=== PATIENT | female | born 1985 | race Caucasian/White ===

== ENCOUNTER 2017-08-05 05:56 | Emergency (ER) | payer SELFPAY ==
[2017-08-05 06:32] LABS: URINE MICROSCOPIC INDICATED? YES; URINE SOURCE RANDOM
--- NOTE | 2017-08-05 06:37 | ED Physician Chart ---
ED Chief Complaint/HPI - Patient Information Date Seen:: 08/05/17 Time Seen:: 06:30 Chief Complaint:: Abdominal pain History of Present Illness:: 31 yo female had abdominal pain for 4 days. The pain is epigastric and RUQ with N/V. She also noticed blood on surface of stool during past 2 months. She had diarrhea and loose stool. She had malnutrition and receive TPN through a [facility] on her right chest. She last received TPN 4 months ago. Currently, she used vegan diet. She also received Pepcide and Zofran through [facility] via home health. Allergies:: Allergies Allergy/AdvReac Type Severity Reaction Status Date / Time acetaminophen [From Tylenol] Allergy Verified 08/05/17 06:16 aspirin Allergy Verified 08/05/17 06:16 codeine Allergy Verified 08/05/17 06:16 metoclopramide [From Reglan] Allergy Verified 08/05/17 06:16 Penicillins [PCN] Allergy Verified 08/05/17 06:16 prochlorperazine Allergy Verified 08/05/17 06:16 [From Compazine] Sulfa (Sulfonamide Allergy Verified 08/05/17 06:16 Antibiotics) Vitals:: Vital Signs - 8 hr 08/05/17 06:00 Temp 97.9 F HR 109 RR 18 BP 120/77 O2 Sat % 97 ED Past Medical History - Past Medical History Past Medical History: PUD/GERD, Other (pancreatitis) Social History: Non Smoker, No Alcohol, No Drug Use Surgical History: Cholecystectomy, other (ureter surgery) Family Medical History - Family Member Mother Ethnicity: Non- ED Labs/Radiology/EKG Results - Lab Results Results: Laboratory Tests 08/05/17 06:25 POC Ur Test Negative ED Septic Shock - <6hrs of presentation: Vital Signs: Vital Signs - 8 hr 08/05/17 06:00 Temp 97.9 F HR 109 RR 18 BP 120/77 O2 Sat % 97
[2017-08-05 06:42] LABS: % BASOPHILS 0.5 % (0.0-2.0); % LYMPHOCYTES 51.8 % (20.0-50.0); % MONOCYTES 7.3 % (2.0-10.0); % NEUTROPHILS 36.4 % (40.0-80.0); EOSINOPHILE ABSOLUTE 0.2 Th/cmm (0.1-0.4); HEMATOCRIT 27.1 % (41.0-60); HEMOGLOBIN 8.9 gm/dL (12-16); LYMPHOCYTE ABSOLUTE 2.3 Th/cmm (1.5-3.0); MEAN CELL VOLUME 87.9 fl (81-100); MEAN CORPUSCULAR HEMOGLOBIN 28.9 pg (27.0-31.0); MEAN CORPUSCULAR HGB CONC 32.9 pg (28.0-36.0); MEAN PLATELET VOLUME 6.3 fl; MONOCYTE ABSOLUTE 0.3 Th/cmm (0.3-1.0); NEUTROPHILE ABSOLUTE 1.6 Th/cmm (1.8-8.0); PLATELET COUNT 289 Th/cmm (150-400); RED BLOOD COUNT 3.08 Mil/cmm (3.80-5.10); RED CELL DISTRIBUTION WIDTH 14.1 % (11.5-20.0); WHITE BLOOD COUNT 4.4 Th/cmm (4.8-10.8)
[2017-08-05 07:09] LABS: ALB/GLOB RATIO 1.8 (1.0-1.8); ALKALINE PHOSPHATASE 57 U/L (34-104); BILIRUBIN,TOTAL 0.2 mg/dL (0.3-1.0); BUN - UREA NITROGEN 10 mg/dL (7-25); CALCIUM SERUM 8.9 mg/dL (8.6-10.3); CARBON DIOXIDE 25.5 mEq/L (21.0-31.0); CHLORIDE 105 mEq/L (98-107); CREATININE - SERUM 0.7 mg/dL (0.6-1.2); GFR AFRICAN-AMERICAN > 60.0 ml/min (>90); GFR NON AFRICAN-AMERICAN > 60.0 ml/min; GLUCOSE 128 mg/dL (70-105); LIPASE 74 U/L (11-82); POTASSIUM SERUM 3.5 mEq/L (3.5-5.1); SGOT 17 U/L (13-39); SGPT/ALT 12 U/L (7-52); SODIUM SERUM 135 mEq/L (136-145); TOTAL PROTEIN,SERUM 6.2 gm/dL (6.0-8.3)
[2017-08-05 07:20] LABS: URINE BILIRUBIN NEGATIVE (NEGATIVE); URINE BLOOD NEGATIVE (NEGATIVE); URINE GLUCOSE (UA) NEGATIVE (NEGATIVE); URINE KETONE NEGATIVE (NEGATIVE); URINE LEUKOCYTE ESTERASE NEGATIVE (NEGATIVE); URINE NITRATE NEGATIVE (NEGATIVE); URINE PROTEIN NEGATIVE (NEGATIVE); URINE UROBILINOGEN 0.2 E.U./dL (0.2 - 1.0)
[2017-08-05 07:29] LABS: URINE BACTERIA NONE SEEN /hpf (NONE SEEN); URINE CLARITY CLEAR (CLEAR); URINE COLOR YELLOW; URINE EPITHELIAL CELLS MODERATE /lpf (FEW); URINE RBC 0-2 /hpf (0-5); URINE WBC 0-2 /hpf (0-5)
== END 2017-08-05 06:30 | disposition left against medical advice (07) ==
LOC: ER 05:56
DX: R10.9 Unspecified abdominal pain (principal); K21.9 Gastro-esophageal reflux disease without esophagitis; Z87.11 Personal history of peptic ulcer disease
CPT/HCPCS: 36415-UA; 80053-TC; 81001-TC; 81025-TC; 83690-TC; 85025-TC; 93005

== ENCOUNTER 2017-10-01 16:00 | Inpatient (IN) | payer MEDICARE, MEDICAID ==
--- NOTE | 2017-10-01 16:45 | ED Physician Chart ---
ED Chief Complaint/HPI - Patient Information Date Seen:: 10/01/17 Time Seen:: 16:25 Chief Complaint:: right low back pain History of Present Illness:: Patient had onset 2 days ago of right low back pain which recurred this morning. Her temperature was 100 orally this morning. She also had onset of dysuria and right-sided headache this morning. Headache now has also gone to the left side of her head. This is her worst headache ever. Patient vomited twice this am. Allergies:: Allergies Allergy/AdvReac Type Severity Reaction Status Date / Time acetaminophen [From Tylenol] Allergy Verified 08/05/17 06:16 aspirin Allergy Verified 08/05/17 06:16 codeine Allergy Verified 08/05/17 06:16 metoclopramide [From Reglan] Allergy Verified 08/05/17 06:16 Penicillins [PCN] Allergy Verified 08/05/17 06:16 prochlorperazine Allergy Verified 08/05/17 06:16 [From Compazine] Sulfa (Sulfonamide Allergy Verified 08/05/17 06:16 Antibiotics) Vitals:: Vital Signs - 8 hr 10/01/17 16:05 Temp 98.1 F HR 126 RR 16 BP 93/59 O2 Sat % 99 Historian:: Patient Review:: Nurse's Note Reviewed ED Review of Systems - Review of Systems General/Constitutional: Fever Skin: No skin lesions Head: Headache Eyes: Acuity change ENT: No earache Neck: No neck pain Cardio Vascular: No chest pain Pulmonary: No SOB GI: No nausea, No vomiting, No diarrhea G/U: Dysuria Musculoskeletal: Back pain Endocrine: No polyuria, No polydipsia Psychiatric: No prior psych history ED Past Medical History - Past Medical History Past Medical History: Other (tachycardia; pancreatitis; 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 Family Medical History - Family Member Mother Ethnicity: Non- ED Physical Exam - Physical Examination General/Constitutional: Awake, Well-developed, well-nourished, Alert, No distress, GCS 15, Non-toxic appearing, Ambulatory Head: Atraumatic Eyes: Lids, conjuctiva normal, PERRL, EOMI Skin: Nl inspection, No rash, No skin lesions, No ecchymosis, Well hydrated, No lymphadenopathy ENMT: External ears, nose nl, Nasal exam nl, Lips, teeth, gums nl Neck: Nontender, No JVD, No nuchal rigidity, No bruit, No mass, No stridor Other Neck comments:: Review 5 forward flexion neck Respiratory: Nl effort/Exclusion, Clear to Auscultation, No Wheeze/Rhonchi/Rales Cardio Vascular: RRR, No murmur, gallop, rubs, NL S1 S2 GI: No organomegaly, No hernia, Normal BS's, Nondistended, No mass/bruits Other GI comments:: Diffuse tenderness more on the right side : No CVA tenderness Extremities: No tenderness or effusion, Full ROM, normal strength in all extremities, No edema, Normal digits & nails Neuro/Psych: Alert/oriented, DTR's symmetric, Normal sensory exam, Normal motor strength, Judgement/insight normal, Mood normal, Normal gait, No focal deficits Misc: Normal back, No paraspinal tenderness ED Septic Shock - . Is Septic Shock (SBP<90, OR Lactate>4 mmol\L) present?: No - <6hrs of presentation: Vital Signs: Vital Signs - 8 hr 10/01/17 16:05 Temp 98.1 F HR 126 RR 16 BP 93/59 O2 Sat % 99 ED Reassessment (Disposition) - Reassessment Reassessment Condition:: Unchanged - Diagnosis Diagnosis:: Hypokalemia; hypomagnesemia; hypotension; cephalgia - Patient Disposition Admitted to:: Med/Surg Admitting Medical Physician:: Lowell Pena Condition at Disposition:: Stable, Unchanged
[2017-10-01 16:51] LABS: URINE MICROSCOPIC INDICATED? YES; URINE SOURCE CLEAN C
[2017-10-01 16:53] LABS: % EOSINOPHILS 0.7 % (0.0-5.0); % MONOCYTES 0.7 % (2.0-10.0); % NEUTROPHILS 88.6 % (40.0-80.0); HEMATOCRIT 27.8 % (41.0-60); HEMOGLOBIN 9.4 gm/dL (12-16); LYMPHOCYTE ABSOLUTE 0.6 Th/cmm (1.5-3.0); MEAN CELL VOLUME 84.7 fl (81-100); MEAN CORPUSCULAR HEMOGLOBIN 28.7 pg (27.0-31.0); MEAN CORPUSCULAR HGB CONC 33.9 pg (28.0-36.0); MEAN PLATELET VOLUME 6.2 fl; NEUTROPHILE ABSOLUTE 5.3 Th/cmm (1.8-8.0); PLATELET COUNT 168 Th/cmm (150-400); RED BLOOD COUNT 3.28 Mil/cmm (3.80-5.10); WHITE BLOOD COUNT 5.9 Th/cmm (4.8-10.8)
[2017-10-01 16:53] LABS: URINE BILIRUBIN NEGATIVE (NEGATIVE); URINE BLOOD NEGATIVE (NEGATIVE); URINE GLUCOSE (UA) NEGATIVE (NEGATIVE); URINE KETONE NEGATIVE (NEGATIVE); URINE LEUKOCYTE ESTERASE NEGATIVE (NEGATIVE); URINE NITRATE NEGATIVE (NEGATIVE); URINE PH 5.5 (4.6 - 8.0); URINE PROTEIN NEGATIVE (NEGATIVE); URINE UROBILINOGEN 0.2 E.U./dL (0.2 - 1.0)
[2017-10-01 16:54] LABS: URINE CLARITY CLEAR (CLEAR); URINE COLOR YELLOW
[2017-10-01 17:00] LABS: URINE BACTERIA NONE SEEN /hpf (NONE SEEN); URINE EPITHELIAL CELLS FEW /lpf (FEW); URINE RBC 0-2 /hpf (0-5); URINE WBC 0-2 /hpf (0-5)
[2017-10-01 17:06] LABS: BUN - UREA NITROGEN 10 mg/dL (7-25); CALCIUM SERUM 8.2 mg/dL (8.6-10.3); CARBON DIOXIDE 21.2 mEq/L (21.0-31.0); CHLORIDE 108 mEq/L (98-107); CREATININE - SERUM 0.7 mg/dL (0.6-1.2); GFR AFRICAN-AMERICAN > 60.0 ml/min (>90); GFR NON AFRICAN-AMERICAN > 60.0 ml/min; GLUCOSE 184 mg/dL (70-105); LIPASE 85 U/L (11-82); MAGNESIUM 1.5 mg/dL (1.9-2.7); POTASSIUM SERUM 3.2 mEq/L (3.5-5.1); SODIUM SERUM 139 mEq/L (136-145)
[2017-10-01] MEDS ORDERED: HYDROmorphone 1 mg/mL 1mL Syr IVP STA ×2 (17:22→19:15)
[2017-10-01] MEDS ORDERED: Mag Sulfate 2gm/50mL Premix 2 GM/50 ML BAG IV ONE ×2 (17:24→17:28)
[2017-10-01] MEDS ORDERED: HYDROmorphone 1 mg/mL 1mL Syr ONE ×2 (17:28→20:14)
[2017-10-01] MEDS ORDERED: KCL 20mEq/100mL Premix 20 MEQ/100 ML PIGGYBACK IV SCH (17:30)
[2017-10-01] MEDS ORDERED: Sodium Chloride 0.9% 1,000 ML IV ONE ×2 (17:48→20:52)
[2017-10-01] MEDS ORDERED: KCL 20mEq/100mL Premix 20 MEQ/100 ML PIGGYBACK IV ONE (18:05)
[2017-10-01 18:21] LABS: A1C % 4.7 % (4.0-6.0)
[2017-10-01] MEDS ORDERED: Sodium Chloride 0.9% 1,000 ML IV SCH (22:15)
--- NOTE | 2017-10-02 07:33 | Diagnostic Imaging Report ---
Ultrasound abdomen HISTORY: Abdominal pain, provided history of cholecystectomy COMPARISON: None Technique: Sonography of the abdomen was performed in multiple planes. FINDINGS: Exam is limited due to body habitus. The liver demonstrates mild increased echogenicity with no evidence of focal lesions. The liver measures 16.9 cm. Gallbladder is not visualized. The Common bile duct measures 4 mm. Evaluation of the pancreas is limited due to bowel gas. The right kidney measures 11.7 x 4.7 cm. No evidence of focal lesions or hydronephrosis. The left kidney measures 10.7 x 4.5 cm. No evidence of focal lesions or hydronephrosis. The spleen measures 13.7 cm. IMPRESSION: Nonvisualization of the gallbladder compatible with provided history of cholecystectomy. Borderline prominent liver with mild increased echogenicity which may be due to underlying hepatocellular disease. Mild splenomegaly.
[2017-10-02] MEDS ORDERED: Potassium Chloride 20 mEq ER Tab PO SCH (09:00)
== END 2017-10-02 00:20 | disposition left against medical advice (07) | DRG 641 ==
LOC: ER 16:00 → MSI 20:20
PROVIDERS: ADMIT General Practice; ATTEND General Practice
DX: E87.6 Hypokalemia (principal); R51 Headache; I95.9 Hypotension, unspecified; E83.42 Hypomagnesemia; Z88.2 Allergy status to sulfonamides; Z88.5 Allergy status to narcotic agent; M54.5 Low back pain; Z88.0 Allergy status to penicillin; Z88.8 Allergy status to other drugs, medicaments and biological substances; Z82.49 Family history of ischemic heart disease and other diseases of the circulatory system; Z90.49 Acquired absence of other specified parts of digestive tract
CPT/HCPCS: 36415-UA; 76700-TC; 80048-TC; 81001-TC; 81025-TC; 83036-90; 83690-TC; 83735-TC; 85025-TC; 96375; J1170; J1200; J3480; J7030

== ENCOUNTER 2017-11-12 08:15 | Emergency (ER) | payer MEDICARE, MEDICAID ==
[2017-11-12] MEDS ORDERED: Sodium Chloride 0.9% 1,000 ML IV ONE (08:44)
--- NOTE | 2017-11-12 08:51 | ED Physician Chart ---
ED Chief Complaint/HPI - Patient Information Date Seen:: 11/12/17 Time Seen:: 08:35 Chief Complaint:: abdominal pain History of Present Illness:: Patient's had mid and lower abdominal pain and left flank pain for 3 days. She vomited 3 times. No diarrhea. Patient thinks she has a kidney infection. Allergies:: Allergies Allergy/AdvReac Type Severity Reaction Status Date / Time acetaminophen [From Tylenol] Allergy Verified 11/12/17 08:28 aspirin Allergy Verified 11/12/17 08:28 codeine Allergy Verified 11/12/17 08:28 metoclopramide [From Reglan] Allergy Verified 11/12/17 08:28 Penicillins [PCN] Allergy Verified 11/12/17 08:28 prochlorperazine Allergy Verified 11/12/17 08:28 [From Compazine] Sulfa (Sulfonamide Allergy Verified 11/12/17 08:28 Antibiotics) Vitals:: Vital Signs - 8 hr 11/12/17 08:21 Temp 98.1 F HR 82 RR 16 BP 95/69 O2 Sat % 98 Historian:: Patient Review:: Nurse's Note Reviewed ED Review of Systems - Review of Systems General/Constitutional: No fever, No chills, No weight loss, No weakness, No diaphoresis, No edema, No loss of appetite Skin: No skin lesions, No rash, No bruising Head: No headache, No light-headedness Eyes: No loss of vision, No pain, No diplopia ENT: No earache, No nasal drainage, No sore throat, No tinnitus Neck: No neck pain, No swelling, No thyromegaly, No stiffness, No mass noted Cardio Vascular: No chest pain, No palpitations, No PND, No orthopnea, No edema Pulmonary: No SOB, No cough, No sputum, No wheezing GI: Nausea, Vomiting, Pain, No melena, No hematochezia, No constipation, No hematemesis G/U: No dysuria, No frequency, No hematuria Musculoskeletal: No bone or joint pain, No back pain, No muscle pain Endocrine: No polyuria, No polydipsia Psychiatric: No prior psych history, No depression, No anxiety, No suicidal ideation Hematopoietic: No bruising, No lymphadenopathy Allergic/Immuno: No urticaria, No angioedema Neurological: No syncope, No focal symptoms, No weakness, No paresthesia, No headache, No seizure, No dizziness, No confusion, No vertigo ED Past Medical History - Past Medical History Past Medical History: Other (tachycardia; pancreatitis; lupus) Social History: Non Smoker, No Alcohol Surgical History: Cholecystectomy, other (tachycardia; acute pancreatitis; lupus ) Psychiatricy History: None Medication: Reviewed Family Medical History - Family Member Mother Ethnicity: Non- ED Physical Exam - Physical Examination General/Constitutional: Awake, Well-developed, well-nourished, Alert, No distress, GCS 15, Non-toxic appearing, Ambulatory Head: Atraumatic Eyes: Lids, conjuctiva normal, PERRL, EOMI Skin: Nl inspection, No rash, No skin lesions, No ecchymosis, Well hydrated, No lymphadenopathy ENMT: External ears, nose nl, Nasal exam nl, Lips, teeth, gums nl Neck: Nontender, Full ROM w/o pain, No JVD, No nuchal rigidity, No bruit, No mass, No stridor Respiratory: Nl effort/Exclusion, Clear to Auscultation, No Wheeze/Rhonchi/Rales Cardio Vascular: RRR, No murmur, gallop, rubs, NL S1 S2 GI: No organomegaly, No hernia, Normal BS's, Nondistended, No mass/bruits Other GI comments:: Diffuse abdominal tenderness without guarding : No CVA tenderness Extremities: No tenderness or effusion, Full ROM, normal strength in all extremities, No edema, Normal digits & nails Neuro/Psych: Alert/oriented, DTR's symmetric, Normal sensory exam, Normal motor strength, Judgement/insight normal, Mood normal, Normal gait, No focal deficits Misc: Normal back, No paraspinal tenderness ED Assessment - Assessment General Assessment: I told patient I was concerned she might have pancreatitis and also wanted to do a urinalysis to rule out urinary tract infection. Patient requested pain medication but I told her I would not give her either dilaudid or morphine (she is allergic to Toradol) and then she eloped before blood could be drawn or she could receive the 1 L of normal saline intravenously. ED Septic Shock - . Is Septic Shock (SBP<90, OR Lactate>4 mmol\L) present?: No - <6hrs of presentation: Vital Signs: Vital Signs - 8 hr 06 08:21 Temp 98.1 F HR 82 RR 16 BP 95/69 O2 Sat % 98 ED Reassessment (Disposition) - Reassessment Reassessment Condition:: Unchanged - Diagnosis Diagnosis:: Abdominal pain - Aftercare/Follow up Instructions Aftercare/Follow-Up Instructions:: Refer to Discharge Instructions - Patient Disposition Discharge/Transfer:: Elope/AWOL Condition at Disposition:: Unchanged
== END 2017-11-12 08:44 | disposition left against medical advice (07) ==
LOC: ER 08:15
DX: R10.84 Generalized abdominal pain (principal); R11.2 Nausea with vomiting, unspecified; Z90.49 Acquired absence of other specified parts of digestive tract; Z88.0 Allergy status to penicillin; Z88.2 Allergy status to sulfonamides; Z88.5 Allergy status to narcotic agent; Z88.6 Allergy status to analgesic agent; Z88.8 Allergy status to other drugs, medicaments and biological substances
CPT/HCPCS: Z7502